=== PATIENT | female | born 1980 | race Two or more races ===

== ENCOUNTER 2023-02-25 17:52 | Emergency (ER) | payer OTHER, SELFPAY ==
[2023-02-25 18:01] VITALS: BP 110/70; PULSE 78; RESP 16; TEMP 36.6; O2SAT 97; BMI 25.6
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
--- NOTE | 2023-02-25 18:32 | CRLHL7_ITS ---
For Patients: As a result of the Century Cures Act, medical imaging exams and procedure reports are released immediately into your electronic medical record. You may view this report before your referring provider. If you have questions, please contact your health care provider. CLINICAL HISTORY: Acute neurological deficit. TECHNIQUE: Standard helical CT image acquisition of the brain was performed. COMPARISON: None available. FINDINGS: There is no intracranial hemorrhage, extra-axial collection, mass effect, or midline shift. Hernandez-white matter differentiation is preserved. No displaced calvarial fracture. The orbits are unremarkable. The paranasal sinuses are unremarkable. The mastoid air cells are unremarkable. IMPRESSION: No CT evidence of acute intracranial abnormality or closed-head injury. Please note that all CT scans at this facility use dose modulation, iterative reconstruction, and/or weight-based dosing when appropriate to reduce radiation dose to as low as reasonably achievable. Dictated by Brian Truong MD @ 02/25/2023 6:55:43 PM (Electronically Signed)
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
[2023-02-25] MEDS: IBUPROFEN 600 MG TABLET PO (19:29)
[2023-02-25] MEDS: ONDANSETRON ODT 4 MG TAB PO (19:29)
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
[2023-02-25 19:52] VITALS: BP 114/78; PULSE 69; RESP 16; O2SAT 98
== END 2023-02-25 21:18 | disposition home or self-care (01) ==
PROVIDERS: Emergency Provider Emergency Medicine
DX: M25.512 Pain in left shoulder (principal); M54.9 Dorsalgia, unspecified; V43.52XA Car driver injured in collision with other type car in traffic accident, initial encounter; Y93.29 Activity, other involving ice and snow
CPT/HCPCS: 70450; 71046; 72100; 72125; 72128; 73030; 99284; A9270